=== PATIENT | female | born 1945 | race Caucasian/White ===

== ENCOUNTER 2020-03-09 11:41 | Day surgery (SDC) | payer OTHER, BC ==
[2020-03-09] MEDS ORDERED: MIDAZOLAM HCL 2 MG/2 ML SINGLE DOSE VIAL ONE ×2 (13:20→13:36)
[2020-03-09] MEDS ORDERED: ROPIVACAINE HCL 0.5% 30ML VIAL ONE (13:20)
[2020-03-09] MEDS ORDERED: LIDOCAINE 1% P/F 10 MG/ML VIAL ONE (13:37)
[2020-03-09] MEDS ORDERED: PROPOFOL 20 ML ONE (13:50)
[2020-03-09] MEDS ORDERED: BUPIVACAINE HCL/PF 0.5% (5MG/ML) 10 ML VIAL ONE (13:51)
[2020-03-09] MEDS ORDERED: ceFAZolin SODIUM 1 GM VIAL ONE (14:08)
[2020-03-09] MEDS ORDERED: GUM MASTIC/STORAX/MSAL/ALCOHOL 1 DRP DROPSBTL MC ONE (14:55)
[2020-03-09 16:03] VITALS: BP 122/65; PULSE 72; TEMP 98
--- NOTE | 2020-03-09 17:00 | OP ---
DATE OF OPERATION: 03/09/2020 PREOPERATIVE DIAGNOSIS: Left comminuted intraarticular displaced distal radius fracture. POSTOPERATIVE DIAGNOSIS: Left comminuted intraarticular displaced distal radius fracture. OPERATIVE PROCEDURE: 1. Open reduction, internal fixation of left comminuted intraarticular displaced distal radius fracture, three or more fragments. 2. Left brachioradialis tenotomy. SURGEON: Chelle Correia MD. WORK[employer] IN[employer] ACT CAREER MANAGER: GAYE Ratliff. ANESTHESIA: Regional. COMPLICATIONS: None. ESTIMATED BLOOD LOSS: Minimal. INDICATION FOR PROCEDURE: The patient is a 74-year-old female with the above findings, indicated for operative treatment. Risks, benefits, and alternatives were discussed with the patient at length. Proper informed consent was obtained. PROCEDURE: After proper identification of the patient and correct operative site, patient was brought to the operating room and placed supine on the operating room table, all bony prominences well padded. Sedation and regional anesthesia were given. Left upper extremity was prepped and draped in the usual sterile fashion. Well padded tourniquet was placed with a sterile prep. Esmarch bandage to exsanguinate the left upper extremity. Tourniquet inflated to 250 mmHg. Longitudinal incision made over the flexor carpi radialis tendon. Incision taken sharply through the skin and blunt dissection of the subcutaneous tissues. Flexor carpi radialis tendon along with contents of the carpal were bluntly and gently retracted in ulnarly direction for the remainder of the procedure. Pronator quadratus fracture. The fracture was found to be highly comminuted intraarticular displaced. A brachioradialis tenotomy in a subperiosteal fashion was necessary to mobilize radial styloid fragment. Once this was accomplished, I was able to fully reduce the fracture, and this was then held with an Arthrex distal radius blocking plate. This provided secure stable fixation confirmed radiographically as well as visually. Distal radial ulnar joints and scapholunate intervals were stressed and found to be stable. Full range of motion was achieved in both pronation and supination, and flexion and extension. The wound was irrigated and repaired in layers using 4-0 Vicryl and 4-0 Monocryl sutures. Steri-Strips and sterile dressings were applied, splint was placed. The patient was reversed from anesthesia and brought to the recovery room in stable condition. She tolerated the procedure well. Stevenson Ballard, the recruitment and outreach assistant, was integral throughout the procedure. He was especially integral during holding reduction while I placed the plate and screws and hardware. This would not have been possible without a skilled operative recruitment and outreach assistant. CHELLE CORREIA M.D. [id number]
--- NOTE | 2020-03-10 14:08 | EKG ---
Test Reason : Blood Pressure : / mmHG Vent. Rate : 067 BPM Atrial Rate : 067 BPM P-R Int : 158 ms QRS Dur : 076 ms QT Int : 422 ms P-R-T Axes : 050 016 040 degrees QTc Int : 445 ms NORMAL SINUS RHYTHM NORMAL ECG NO PREVIOUS ECGS AVAILABLE Confirmed by MITZI MCCARTHY MD ([id number]) on 03/10/2020 2:07:56 PM Referred By: Confirmed By:MITZI MCCARTHY MD
== END 2020-03-09 16:25 | disposition home or self-care (01) ==
LOC: FASU 11:41
PROVIDERS: ATTEND Orthopaedic Surgery Hand Surgery
PROC: 0LN60ZZ Release Left Lower Arm and Wrist Tendon, Open Approach (ICD-10-PCS; 2020-03-09)
PROC: 0PSJ04Z Reposition Left Radius with Internal Fixation Device, Open Approach (ICD-10-PCS; principal; 2020-03-09 14:19)
DX: S52.532A Colles' fracture of left radius, initial encounter for closed fracture (principal); E78.00 Pure hypercholesterolemia, unspecified; I10 Essential (primary) hypertension; X58.XXXA Exposure to other specified factors, initial encounter; Y93.9 Activity, unspecified; Y92.9 Unspecified place or not applicable
CPT/HCPCS: 25290; 25609; C1713; 73110-TC-LT-FY; 82962; 93005

== ENCOUNTER 2021-12-15 11:09 | Emergency (ER) | payer OTHER, BC ==
[2021-12-15 11:16] VITALS: BP 138/70; PULSE 83; TEMP 98.7; BMI 28.7
[2021-12-15] MEDS ORDERED: ACETAMINOPHEN 500 MG TABLET (FP) PO ONE (12:05)
[2021-12-15] MEDS ORDERED: DIPHTH,PERTUSS(ACELL),TET 0.5 ML DISP.SYRIN IM ONE ×2 (12:05→12:13)
[2021-12-15] MEDS ORDERED: ACETAMINOPHEN 500 MG TABLET (FP) ONE (12:13)
== END 2021-12-15 14:50 | disposition home or self-care (01) ==
LOC: FER 11:09
PROC: 3E0234Z Introduction of Serum, Toxoid and Vaccine into Muscle, Percutaneous Approach (ICD-10-PCS; principal; 2021-12-15)
DX: S02.2XXA Fracture of nasal bones, initial encounter for closed fracture (principal); W01.0XXA Fall on same level from slipping, tripping and stumbling without subsequent striking against object, initial encounter
CPT/HCPCS: 70450-TC; 70486-TC; 72125-TC; 73502-TC-LT-FY; 90471; 90715; 99284-25

== ENCOUNTER 2023-03-22 18:10 | Emergency (ER) | payer OTHER, BC ==
[2023-03-22 18:32] VITALS: BP 156/80; PULSE 80; RESP 16; TEMP 99; BMI 28.3
[2023-03-22] MEDS ORDERED: ACETAMINOPHEN 500 MG TABLET (FP) PO ONE (18:57)
[2023-03-22] MEDS ORDERED: ACETAMINOPHEN 500 MG TABLET (FP) ONE (18:59)
== END 2023-03-22 20:33 | disposition home or self-care (01) ==
LOC: FER 18:10
DX: S02.2XXA Fracture of nasal bones, initial encounter for closed fracture (principal); S80.211A Abrasion, right knee, initial encounter; W01.0XXA Fall on same level from slipping, tripping and stumbling without subsequent striking against object, initial encounter; Y92.093 Driveway of other non-institutional residence as the place of occurrence of the external cause
CPT/HCPCS: 70450-TC; 70486-TC; 71101-TC-LT-FY; 72125-TC; 73562-TC-RT-FY; 99284-25